=== PATIENT | male | born 1965 | race Caucasian/White ===

== ENCOUNTER 2016-09-06 10:35 | Emergency (ER) | payer OTHER ==
[~2016-09-06] VITALS: Ht 182.9 cm; Wt 125.6 kg
[~2016-09-06 10:35] MED LIST: AMOX TR-K CLV1 EAC4 PO; ANAPROX DS550 M1 PO; ATORVASTATIN CA40 MG PO; AUGMENTIN875 MG PO; CARDURA2 M1 PO; CEFDINIR300 MG PO; CHILDREN'S ASPI81 M1 PO; CRESTOR10 MG PO; ENDOCET 5-3251 EACH PO; FLONASE16 G1 BOTH NARES; GLUCOPHAGE500 MG PO; HYDROCHLOROTHIA25 MG PO; LEVAQUIN750 MG PO; LIPITOR10 MG PO; LISINOPRIL20 MG PO; LORTAB 5-325 M1 EACH PO; MELATONIN10 M1 PO; MOTRIN600 MG PO; NOHOMEMEDS; NORCO 5/3251 TABLET PO; NORVASC5 MG PO; OXYCODONE HCL20 M1 PO; PREDNISONE50 MG PO; ROBITUSSIN AC,T10 ML PO; VENTOLIN HFA18 GM IH; VERAMYST10 GM BOTH NARES; ZESTORETIC 20-1 EAC1 PO; ZYRTEC10 M2 PO
[2016-09-06] MEDS ORDERED: NAPROSYN500 MG PO (12:41)
[2016-09-06] MEDS ORDERED: FLONASE16 G1 BOTH NARES (12:41)
[2016-09-06] MEDS ORDERED: GUAIFENESIN600 M1 PO (12:41)
[2016-09-06 13:18] VITALS: BP 140/94
[2016-09-07] MEDS ORDERED: FLONASE ALLERG9.9 ML BOTH NARES (10:42)
[2016-09-07] MEDS ORDERED: GUAIFENESIN600 M1 PO (10:43)
== END 2016-09-06 13:19 | disposition home or self-care (01) ==
LOC: EME 10:35
DX: R51 Headache (principal); H92.03 Otalgia, bilateral; J30.2 Other seasonal allergic rhinitis; J02.9 Acute pharyngitis, unspecified; I10 Essential (primary) hypertension; E11.9 Type 2 diabetes mellitus without complications; Z79.84 Long term (current) use of oral hypoglycemic drugs; F17.210 Nicotine dependence, cigarettes, uncomplicated; Z71.6 Tobacco abuse counseling
CPT/HCPCS: 99281; 99283; J1885

== ENCOUNTER 2016-09-07 08:40 | Observation (INO) | payer OTHER ==
[~2016-09-07] VITALS: Ht 182.9 cm; Wt 125.0 kg
[~2016-09-07 08:40] MED LIST changes: +GUAIFENESIN600 M1 PO; +NAPROSYN500 MG PO
[2016-09-07 10:34] LABS: MCH 32.5 PG (29.0-34.0); MCHC 34.9 G/DL (30.0-36.0); MCV 93.2 FL (86-99); MEAN PLAT.VOLUME 9.4 uM^3 (9.0-12.4); PLATELET COUNT 221 K/uL (156-360); RBC DIS.WIDTH-CV 11.9 % (11.8-14.6); RBC DIS.WIDTH-SD 41.1 % (39-53); RED BLOOD COUNT 4.83 M/uL (4.00-5.50); WHITE BLOOD COUNT 12.8 K/uL (4.1-10.2)
[2016-09-07] MEDS ORDERED: FLONASE ALLERG9.9 ML BOTH NARES (10:42)
[2016-09-07] MEDS ORDERED: GUAIFENESIN600 M1 PO (10:43)
[2016-09-07 10:47] LABS: CHLORIDE 106 mEq/L (99-109); SODIUM 136 mEq/L (136-147)
[2016-09-07 10:49] LABS: GLUCOSE 109 mg/dL (70-99)
[2016-09-07 10:51] LABS: ANION GAP 9 MEQ/L (2-14)
[2016-09-07 10:53] LABS: GFR ESTIMATE (CALCULATED) > 59 mL/min/
[2016-09-07 10:54] LABS: UREA NITROGEN (BUN) 7 mg/dL (9-23)
[2016-09-07 12:47] VITALS: BP 130/75
[2016-09-07 13:09] LABS: POINT-OF-CARE METER ID UU14162513
[2016-09-07 16:00] VITALS: BP 138/87
[2016-09-07 18:39] LABS: POINT-OF-CARE METER ID UU14162513
[2016-09-07 19:00] VITALS: BP 128/77
[2016-09-07 21:54] LABS: POINT-OF-CARE METER ID UU13113700
[2016-09-08 00:45] VITALS: BP 94/51
[2016-09-08 04:00] VITALS: BP 98/56
[2016-09-08 05:18] LABS: MCH 32.5 PG (29.0-34.0); MCHC 33.9 G/DL (30.0-36.0); MCV 96.1 FL (86-99); MEAN PLAT.VOLUME 9.6 uM^3 (9.0-12.4); PLATELET COUNT 208 K/uL (156-360); RBC DIS.WIDTH-CV 12.5 % (11.8-14.6); RBC DIS.WIDTH-SD 44.4 % (39-53); RED BLOOD COUNT 4.58 M/uL (4.00-5.50); WHITE BLOOD COUNT 14.2 K/uL (4.1-10.2)
[2016-09-08 05:36] LABS: ALKALINE PHOSPHATASE 93 IU/L (3-129); ANION GAP 5 MEQ/L (2-14); CHLORIDE 103 MEQ/L (99-109); GFR ESTIMATE (CALCULATED) > 59 mL/min/; GLUCOSE 113 mg/dL (70-99); POTASSIUM 4.8 MEQ/L (3.7-5.4); SAMPLE HEMOLYSIS CHECK 0; SAMPLE ICTERIC CHECK 0; SAMPLE LIPEMIA CHECK 0; SODIUM 134 MEQ/L (136-147); TOTAL BILIRUBIN 0.4 MG/DL (0.0-1.0); UREA NITROGEN (BUN) 8 mg/dL (9-23)
[2016-09-08 07:18] VITALS: BP 127/78
[2016-09-08] MEDS ORDERED: AUGMENTIN875 MG PO (10:05)
[2016-09-08] MEDS ORDERED: HYDROCODON-ACE1 EAC9 PO (10:06)
== END 2016-09-08 13:24 | disposition home or self-care (01) ==
LOC: EME 08:40 → EDOF 11:50 → 5WEST 11:50 → ENRESERV 11:52 → 5WEST 12:26 → ENPENDDIS 09-08 → 5WEST 09-08 13:24
PROVIDERS: Hospitalist; Nurse Practitioner Family
DX: H05.011 Cellulitis of right orbit (principal); H05.012 Cellulitis of left orbit; H57.8 Other specified disorders of eye and adnexa; K04.7 Periapical abscess without sinus; R51 Headache; M54.2 Cervicalgia; E11.9 Type 2 diabetes mellitus without complications; H53.8 Other visual disturbances; I10 Essential (primary) hypertension; R73.03 Prediabetes; F17.200 Nicotine dependence, unspecified, uncomplicated; Z88.7 Allergy status to serum and vaccine
CPT/HCPCS: 70450; 70486; 70487; 80048; 80053; 82948; 85027; 87040; 99281; 99285; G0378; J0295; J1200; J1885; J2765; J2920; J3010; J7030; J7050

== ENCOUNTER 2016-09-19 08:05 | Emergency (ER) | payer OTHER ==
[~2016-09-19] VITALS: Ht 182.9 cm; Wt 125.0 kg
[~2016-09-19 08:05] MED LIST changes: +FLONASE ALLERG9.9 ML BOTH NARES; +HYDROCODON-ACE1 EAC9 PO
[2016-09-19 09:34] LABS: HEMATOCRIT 47.6 % (38.0-50.0); MCH 32.6 PG (29.0-34.0); MCHC 35.3 G/DL (30.0-36.0); MCV 92.2 FL (86-99); MEAN PLAT.VOLUME 9.7 uM^3 (9.0-12.4); PLATELET COUNT 241 K/uL (156-360); RBC DIS.WIDTH-CV 11.8 % (11.8-14.6); RBC DIS.WIDTH-SD 39.8 % (39-53); RED BLOOD COUNT 5.16 M/uL (4.00-5.50); WHITE BLOOD COUNT 13.6 K/uL (4.1-10.2)
[2016-09-19 09:47] LABS: CHLORIDE 103 mEq/L (99-109); POTASSIUM 4.1 mEq/L (3.7-5.4); SODIUM 135 mEq/L (136-147)
[2016-09-19 09:49] LABS: GLUCOSE 104 mg/dL (70-99)
[2016-09-19 09:50] LABS: ANION GAP 10 MEQ/L (2-14)
[2016-09-19 09:51] LABS: TOTAL BILIRUBIN 0.4 mg/dL (0.0-1.0)
[2016-09-19 09:52] LABS: ALKALINE PHOSPHATASE 111 IU/L (3-129)
[2016-09-19 09:53] LABS: GFR ESTIMATE (CALCULATED) > 59 mL/min/
[2016-09-19 09:54] LABS: UREA NITROGEN (BUN) 7 mg/dL (9-23)
[2016-09-19 10:03] LABS: TROP-I INTERPRETATION NEGATIVE; TROPONIN-I < 0.01 ng/mL (0.0-0.30)
[2016-09-19] MEDS ORDERED: ZYRTEC10 M2 PO (14:12)
[2016-09-19] MEDS ORDERED: NAPROSYN500 MG PO (14:12)
[2016-09-19] MEDS ORDERED: GUAIFENESIN600 M1 PO (14:12)
[2016-09-19] MEDS ORDERED: FLONASE16 G1 BOTH NARES (14:12)
[2016-09-19 14:57] VITALS: BP 156/97
[2016-09-20] MEDS ORDERED: PREDNISONE20 MG PO (17:05)
== END 2016-09-19 14:57 | disposition home or self-care (01) ==
LOC: EME 08:05
PROVIDERS: Nurse Practitioner Family
DX: R59.9 Enlarged lymph nodes, unspecified (principal); M79.622 Pain in left upper arm; I10 Essential (primary) hypertension; E78.5 Hyperlipidemia, unspecified; E11.9 Type 2 diabetes mellitus without complications; Z79.84 Long term (current) use of oral hypoglycemic drugs; F17.210 Nicotine dependence, cigarettes, uncomplicated
CPT/HCPCS: 71020; 76536; 80053; 84484; 85027; 93005; 99281; 99285

== ENCOUNTER 2016-09-20 12:14 | Inpatient (IN) | payer OTHER ==
[~2016-09-20] VITALS: Ht 182.9 cm; Wt 126.6 kg
[2016-09-20 13:26] LABS: BASOPHIL COUNT 0.1 K/uL (0-0.1); EOSINOPHIL (%) 0.2 % (0-5); HEMATOCRIT 45.9 % (38.0-50.0); IMMATURE GRANULOCYTE (%) 1.7 % (0.0-0.7); IMMATURE GRANULOCYTE COUNT 0.3 K/uL; INSTRUMENT ABS NEUTROPHIL CT 15.6 K/uL; LYMPHOCYTE COUNT 2.6 K/uL (1.0-2.8); MCH 32.8 PG (29.0-34.0); MCHC 35.5 G/DL (30.0-36.0); MCV 92.4 FL (86-99); MEAN PLAT.VOLUME 9.7 uM^3 (9.0-12.4); MONOCYTE (%) 4.1 % (3-12); MONOCYTE COUNT 0.8 K/uL (0-0.8); NEUTROPHIL (%) 80.2 % (45-76); NEUTROPHIL COUNT 15.6 K/uL (1.8-6.4); PLATELET COUNT 238 K/uL (156-360); RBC DIS.WIDTH-CV 11.9 % (11.8-14.6); RBC DIS.WIDTH-SD 40.2 % (39-53); RED BLOOD COUNT 4.97 M/uL (4.00-5.50); WHITE BLOOD COUNT 19.4 K/uL (4.1-10.2)
[2016-09-20 13:27] LABS: CHLORIDE 99 mEq/L (99-109); POTASSIUM 3.5 mEq/L (3.7-5.4); SODIUM 133 mEq/L (136-147)
[2016-09-20 13:29] LABS: GLUCOSE 109 mg/dL (70-99)
[2016-09-20 13:30] LABS: ANION GAP 11 MEQ/L (2-14)
[2016-09-20 13:33] LABS: GFR ESTIMATE (CALCULATED) > 59 mL/min/
[2016-09-20 13:34] LABS: UREA NITROGEN (BUN) 9 mg/dL (9-23)
[2016-09-20] MEDS ORDERED: PREDNISONE20 MG PO (17:05)
[2016-09-20 20:27] VITALS: BP 106/66
[2016-09-21 00:30] VITALS: BP 91/55
[2016-09-21 03:56] VITALS: BP 101/55
[2016-09-21 07:04] LABS: HEMATOCRIT 45.2 % (38.0-50.0); MCH 32.4 PG (29.0-34.0); MCHC 33.8 G/DL (30.0-36.0); MCV 95.8 FL (86-99); PLATELET COUNT 227 K/uL (156-360); RBC DIS.WIDTH-CV 12.5 % (11.8-14.6); RBC DIS.WIDTH-SD 44.9 % (39-53); RED BLOOD COUNT 4.72 M/uL (4.00-5.50); WHITE BLOOD COUNT 7.7 K/uL (4.1-10.2)
[2016-09-21 07:36] LABS: ANION GAP 8 MEQ/L (2-14); CHLORIDE 107 MEQ/L (99-109); GFR ESTIMATE (CALCULATED) > 59 mL/min/; GLUCOSE 91 mg/dL (70-99); SAMPLE HEMOLYSIS CHECK 0; SAMPLE ICTERIC CHECK 0; SAMPLE LIPEMIA CHECK 0; SODIUM 139 MEQ/L (136-147); UREA NITROGEN (BUN) 8 mg/dL (9-23)
[2016-09-21 07:37] LABS: POTASSIUM 4.7 MEQ/L (3.7-5.4)
[2016-09-21 07:52] VITALS: BP 128/83
[2016-09-21 11:32] VITALS: BP 130/78
[2016-09-21 15:31] VITALS: BP 117/70
[2016-09-22 00:15] VITALS: BP 118/69
[2016-09-22 06:37] LABS: HEMATOCRIT 45.9 % (38.0-50.0); MCH 32.2 PG (29.0-34.0); MCV 94.6 FL (86-99); MEAN PLAT.VOLUME 9.5 uM^3 (9.0-12.4); PLATELET COUNT 223 K/uL (156-360); RBC DIS.WIDTH-CV 12.2 % (11.8-14.6); RED BLOOD COUNT 4.85 M/uL (4.00-5.50); WHITE BLOOD COUNT 10.1 K/uL (4.1-10.2)
[2016-09-22 07:17] LABS: ANION GAP 9 MEQ/L (2-14); CHLORIDE 103 MEQ/L (99-109); GFR ESTIMATE (CALCULATED) > 59 mL/min/; GLUCOSE 140 mg/dL (70-99); POTASSIUM 4.2 MEQ/L (3.7-5.4); SAMPLE HEMOLYSIS CHECK 0; SAMPLE ICTERIC CHECK 0; SAMPLE LIPEMIA CHECK 0; SODIUM 137 MEQ/L (136-147); UREA NITROGEN (BUN) 6 mg/dL (9-23)
[2016-09-22 07:41] VITALS: BP 135/94
[2016-09-22 15:41] VITALS: BP 127/69
[2016-09-22] MEDS ORDERED: NICOTINE PATCH1 EAC2 TD (16:04)
[2016-09-22] MEDS ORDERED: AUGMENTIN875 MG PO ×2 (16:04→16:11)
[2016-09-22] MEDS ORDERED: HYDROCODON-ACE1 EAC7 PO (16:04)
== END 2016-09-22 16:48 | disposition home or self-care (01) | DRG 603 ==
LOC: EME 12:14 → EDOF 16:02 → 3EAST 16:02 → ENRESERV 16:05 → 3EAST 19:37
PROVIDERS: Emergency Medicine; Internal Medicine
DX: L03.213 Periorbital cellulitis (principal); E87.1 Hypo-osmolality and hyponatremia; I10 Essential (primary) hypertension; K04.7 Periapical abscess without sinus; F17.200 Nicotine dependence, unspecified, uncomplicated; E78.5 Hyperlipidemia, unspecified; H10.9 Unspecified conjunctivitis; J34.1 Cyst and mucocele of nose and nasal sinus; L03.211 Cellulitis of face
CPT/HCPCS: 70487; 71020; 76536; 80048; 80053; 84484; 85025; 85027; 85651; 87040; 93005; 99281; 99285; J0295; J1650; J2270; J2405; J7030; J7050

== ENCOUNTER 2017-06-13 06:20 | Emergency (ER) | payer OTHER ==
[~2017-06-13] VITALS: Ht 182.9 cm; Wt 131.8 kg
[~2017-06-13 06:20] MED LIST changes: +HYDROCODON-ACE1 EAC7 PO; +NICOTINE PATCH1 EAC2 TD; +PREDNISONE20 MG PO
[2017-06-13 06:57] LABS: BASOPHIL (%) 0.3 % (0-1); EOSINOPHIL (%) 0.3 % (0-5); HEMATOCRIT 46.8 % (38.0-50.0); HEMOGLOBIN 16.7 G/DL (12.5-16.6); IMMATURE GRANULOCYTE (%) 0.6 % (0.0-0.7); LYMPHOCYTE (%) 6.8 % (15-42); LYMPHOCYTE COUNT 0.9 K/uL (1.0-2.8); MCH 32.7 PG (29.0-34.0); MCHC 35.7 G/DL (30.0-36.0); MCV 91.6 FL (86-99); MONOCYTE (%) 1.8 % (3-12); MONOCYTE COUNT 0.2 K/uL (0-0.8); NEUTROPHIL (%) 90.2 % (45-76); NEUTROPHIL COUNT 11.7 K/uL (1.8-6.4); PLATELET COUNT 247 K/uL (156-360); RBC DIS.WIDTH-CV 12.2 % (11.8-14.6); RBC DIS.WIDTH-SD 41.1 % (39-53); RED BLOOD COUNT 5.11 M/uL (4.00-5.50)
[2017-06-13 08:56] LABS: ALBUMIN 3.9 G/DL (3.2-4.8); CHLORIDE 101 MEQ/L (99-109); POTASSIUM 4.2 MEQ/L (3.7-5.4); SODIUM 130 MEQ/L (136-147); TOTAL BILIRUBIN 0.6 MG/DL (0.0-1.0)
[2017-06-13 09:02] LABS: ALKALINE PHOSPHATASE 109 IU/L (3-129); ALT (GPT) 12 IU/L (3-49); AST (GOT) 16 IU/L (2-34); CREATININE 0.7 MG/DL (0.6-1.3); GFR ESTIMATE (CALCULATED) > 59 mL/min/ (58.99-99999); GLUCOSE 140 mg/dL (70-99); LIPASE 8 U/L (1.0-51.0); TOTAL PROTEIN 6.5 G/DL (6.4-8.3); UREA NITROGEN (BUN) 8 mg/dL (9-23)
[2017-06-13] MEDS ORDERED: ZOFRAN4 MG PO (10:27)
[2017-06-13] MEDS ORDERED: PERCOCET 5/31 TABLET PO (10:27)
[2017-06-13 10:41] VITALS: BP 148/84
[2017-06-13] MEDS ORDERED: MOTRIN IB200 MG PO (13:51)
[2017-06-14] MEDS ORDERED: DILAUDID4 MG PO (13:28)
[2017-06-14] MEDS ORDERED: ONDANSETRON HCL8 MG PO (13:28)
[2017-06-14] MEDS ORDERED: COLACE100 MG PO (13:28)
== END 2017-06-13 10:42 | disposition home or self-care (01) ==
LOC: EME 06:20
PROVIDERS: Emergency Medicine
DX: K80.70 Calculus of gallbladder and bile duct without cholecystitis without obstruction (principal); K76.0 Fatty (change of) liver, not elsewhere classified; R06.02 Shortness of breath; I10 Essential (primary) hypertension; E11.9 Type 2 diabetes mellitus without complications; Z79.84 Long term (current) use of oral hypoglycemic drugs; F17.200 Nicotine dependence, unspecified, uncomplicated
CPT/HCPCS: 71045; 76705; 80053; 81003; 83690; 85025; 93005; 99281; 99285; J1885; J2405; J3010; J7030

== ENCOUNTER 2017-06-13 12:02 | Observation (INO) | payer OTHER ==
[~2017-06-13] VITALS: Ht 182.9 cm; Wt 124.0 kg
[~2017-06-13 12:02] MED LIST changes: +PERCOCET 5/31 TABLET PO; +ZOFRAN4 MG PO
[2017-06-13 12:50] VITALS: BP 143/80
[2017-06-13] MEDS ORDERED: MOTRIN IB200 MG PO (13:51)
[2017-06-13 15:08] VITALS: BP 127/74
[2017-06-13 16:24] LABS: HEMOGLOBIN A1c (GLYCOHEMOGLOB) 5.7 % (Below 5.7)
[2017-06-13 18:48] VITALS: BP 102/55
[2017-06-13 23:09] VITALS: BP 101/50
[2017-06-14 03:20] VITALS: BP 102/62
[2017-06-14 07:12] VITALS: BP 92/52
[2017-06-14 12:15] VITALS: BP 113/68
[2017-06-14 12:30] VITALS: BP 113/68
[2017-06-14] MEDS ORDERED: COLACE100 MG PO (13:28)
[2017-06-14] MEDS ORDERED: DILAUDID4 MG PO (13:28)
[2017-06-14] MEDS ORDERED: ONDANSETRON HCL8 MG PO (13:28)
[2017-06-14 17:16] VITALS: BP 128/58
[2017-06-14 19:44] VITALS: BP 125/63
== END 2017-06-14 19:40 | disposition home or self-care (01) ==
LOC: 2EAST 12:02 → ENRESERV 12:03 → 2EAST 12:27
PROVIDERS: Surgery
DX: K80.12 Calculus of gallbladder with acute and chronic cholecystitis without obstruction (principal); K66.0 Peritoneal adhesions (postprocedural) (postinfection); K76.0 Fatty (change of) liver, not elsewhere classified; E66.01 Morbid (severe) obesity due to excess calories; E11.9 Type 2 diabetes mellitus without complications; E78.5 Hyperlipidemia, unspecified; I10 Essential (primary) hypertension; N43.3 Hydrocele, unspecified; G50.0 Trigeminal neuralgia; L03.211 Cellulitis of face; M25.561 Pain in right knee; M54.16 Radiculopathy, lumbar region; Z79.84 Long term (current) use of oral hypoglycemic drugs; Z83.49 Family history of other endocrine, nutritional and metabolic diseases; Z82.5 Family history of asthma and other chronic lower respiratory diseases; F17.200 Nicotine dependence, unspecified, uncomplicated; Z88.7 Allergy status to serum and vaccine
CPT/HCPCS: 82948; 83036; 88304; 93005; G0378; J0131; J1100; J1170; J1885; J2250; J2405; J2543; J2710; J3010; J7050; J7120; J7643; S0028